=== PATIENT | female | born 1970 | race Caucasian/White ===

== ENCOUNTER 2017-06-18 20:28 | Observation (INO) ==
[2017-06-18 20:55] LABS: Basophils # 0.1 K/mcL (0.0-0.2); Basophils % 0.6 %; Eosinophils # 0.3 K/mcL (0.0-0.6); Eosinophils % 2.2 %; Hematocrit 48.1 % (35.3-44.9); Hemoglobin 15.3 g/dL (11.5-15.4); Immature Granulocytes % 0.5 % (0-4); Lymphocytes # 3.8 K/mcL (0.6-4.6); Lymphocytes % 30.1 %; Mean Corpuscular HGB Conc 31.8 g/dL (31.6-35.5); Mean Corpuscular Hemoglobin 26.2 pg (28.0-33.3); Mean Corpuscular Volume 82.4 fL (83.0-100.0); Mean Platelet Volume 9.2 fL (9.4-12.4); Monocytes # 0.8 K/mcL (0.0-1.3); Monocytes % 6.1 %; Neutrophils # 7.6 K/mcL (1.6-8.9); Platelet Count 291 K/mcL (140-400); Red Blood Count 5.84 M/mcL (3.82-4.97); Segmented Neutrophils % 60.5 %
[2017-06-18 21:05] LABS: Prothrombin Time 10.5 Seconds (9.4-12.1)
[2017-06-18] MEDS ORDERED: Aspirin 81 MG TAB.CHEW PO STA (21:07)
[2017-06-18 21:08] LABS: Activated Partial Thrombo Time 25.2 Seconds (26.0-36.0)
[2017-06-18 21:09] LABS: BUN/Creatinine Ratio 18 (6-26); Blood Urea Nitrogen 15 mg/dL (7-20); Calcium 9.9 mg/dL (8.6-10.8); Carbon Dioxide 23 mEq/L (19-29); Chloride 105 mEq/L (98-109); Glucose 138 mg/dL (70-99); Osmolality,Calculated 291 (280-300); Sodium 139 mEq/L (136-145); eGFR For African Americans > 60 (> 60); eGFR For Non-African Americans > 60 (> 60)
--- NOTE | 2017-06-18 21:10 | Emergency Department Note ---
Disposition Clinical Impression: Elevated blood pressure reading Chest pain Qualifiers: Chest pain type: unspecified Qualified Code(s): R07.9 - Chest pain, unspecified Disposition: Admitted As Inpatient Condition: Good Referrals: NONE,PCP [Non-Partnered Physician] - Forms: ED Satisfaction Letter Time of Disposition: 22:20 General Adult HPI - General Chief complaint: ED Shortness of Breath/Dyspnea Stated complaint: CP/SOB Time Seen by Provider: 06/18/17 20:41 Source: patient Mode of arrival: ambulatory Limitations: no limitations Nursing Notes Reviewed: Yes Vital Signs Reviewed: Yes - History of Present Illness HPI Narrative: Patient is a 47-year-old female with a past medical history of hypertension who presents to the emergency department with the complaint of chest pain or shortness of breath that started 10 days ago. Symptoms have been gradual and worsening. She describes the chest pain as substernal and aching, 7/10 pain at this time, also has pain in her back and below each side of her rib cage. She denies any fevers, chills, vomiting. She has had episodes of associated diaphoresis. She states she had nausea and vomiting 3 days ago however she was also having one of her typical migraines at that time which she usually has nausea and vomiting with those. At night she uses nasal BiPAP and there is been a couple nights this week which she states she has felt short of breath from laying flat and she has to sit up to catch her breath. She states her lower extremities are more swollen than usual. She has not had any cardiac workup done. She recently quit smoking 12 days ago. She states she has not had a cough until today and she is not bringing up any mucus she states it just feels like a scratch in her throat. Denies any control use. No recent travels or surgeries in the last 3 weeks. Pain Scale: 7 - Related Data Previous Rx's Medication Instructions Recorded Oxycodone HCl/Acetaminophen 1 each PO Q4-6H PRN #10 tablet 02/11/16 [Percocet 5-325 mg Tablet] traMADol [Ultram] 50 mg PO Q6HR PRN #12 tablet 07/14/16 Allergies Allergy/AdvReac Type Severity Reaction Status Date / Time No Known Allergies Allergy Verified 06/18/17 20:34 All systems ED: reviewed and negative except as stated. Constitutional: Denies: fever, chills Cardiovascular: Reports: chest pain, orthopnea. Denies: palpitations, dyspnea on exertion, syncope Respiratory: Reports: cough, dyspnea. 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 She is speaking in full sentences. - General Limitations: no limitations General appearance: alert, in no apparent distress - Head Head exam: atraumatic, normocephalic, normal inspection - Eye Eye exam: Present: normal appearance, PERRL, EOMI - ENT ENT exam: normal exam, normal oropharynx, mucous membranes moist - Neck Neck exam: Present: normal inspection, full ROM, trachea midline - Chest Chest inspection: Present: normal inspection, symmetric chest wall rise. Absent : tenderness - Respiratory Respiratory exam: Present: normal lung sounds bilaterally. Absent: respiratory distress - Cardiovascular Cardiovascular exam: Present: regular rate, normal rhythm, normal heart sounds - Abdominal Exam Abdominal exam: Present: soft, Non-Tender, normal bowel sounds - Extremities Exam Extremities exam: Present: full ROM, pedal edema (1+ pitting edema). Absent: tenderness - Expanded Lower Extremity Exam Neurovascular/Tendon exam: Present: normal capillary refill. Absent: pulse deficit Gait: observed and normal - Back Exam Back exam: Present: normal inspection, full ROM. Absent: tenderness - Neurological Exam Neurological exam: Present: alert, oriented X3 - Psychiatric Psychiatric exam: Present: normal affect, normal mood - Skin Skin exam: Present: warm, dry, intact, normal color Course Course Narrative: Patient is a 47-year-old female presenting with chest pain has been going on for 10 days with associated shortness of breath. Plan for her in the ER is to order labs for cardiac workup including troponin, chest x-ray, EKG. Also give her aspirin. Also trial her with nitroglycerin, her blood pressure is 190s/ 110s. I have also asked the tech to try a different blood pressure cuff. - Reevaluation(s) Reevaluation #1: Patient took one dose of nitro SL and it did not improve her pain. She states it also gave her a headache. Her blood pressure is now 130/90. Time: 22:10 Reevaluation #2: The patient's blood pressure has improved from 130/90's. I discussed the patient case with Dr. Hood. Discussed plan to admit the patient for ACS rule out. He has requested that I order a d-dimer that he will follow up with once the patient is admitted. Time: 23:29 Vital Signs Temperature 98.5 F 06/18/17 20:28 Pulse Rate 95 06/18/17 20:28 Respiratory Rate 20 06/18/17 20:28 Blood Pressure 207/114 06/18/17 20:28 O2 Sat by Pulse Oximetry 96 06/18/17 20:28 Temperature 98.5 F 06/18/17 20:28 Pulse Rate 90 06/18/17 22:07 Respiratory Rate 16 06/18/17 22:07 Blood Pressure 130/87 06/18/17 22:07 O2 Sat by Pulse Oximetry 97 06/18/17 22:07 Oxygen Delivery Oxygen Delivery Room Air Medical Decision Making - Medical Records Medical records reviewed: Yes I reviewed the patient's medical records. - Lab Data Lab results reviewed: Yes I reviewed the patient's lab results. Result diagrams: 06/18/17 20:47 06/18/17 20:47 Lab Results 06/18/17 06/18/17 06/18/17 Range/Units 20:47 20:47 20:47 WBC 12.6 H (4.3-11.1) K/mcL RBC 5.84 H (3.82-4.97) M/mcL Hgb 15.3 (11.5-15.4) g/dL Hct 48.1 H (35.3-44.9) % MCV 82.4 L (83.0-100.0) fL MCH 26.2 L (28.0-33.3) pg MCHC 31.8 (31.6-35.5) g/dL RDW 14.0 (11.5-14.5) % Plt Count 291 (140-400) K/mcL MPV 9.2 L (9.4-12.4) fL Immature Gran % 0.5 (0-4) % Seg Neutrophils % 60.5 % Lymphocytes % 30.1 % Monocytes % 6.1 % Eosinophils % 2.2 % Basophils % 0.6 % Neutrophils # 7.6 (1.6-8.9) K/mcL Lymphocytes # 3.8 (0.6-4.6) K/mcL Monocytes # 0.8 (0.0-1.3) K/mcL Eosinophils # 0.3 (0.0-0.6) K/mcL Basophils # 0.1 (0.0-0.2) K/mcL PT 10.5 (9.4-12.1) Seconds INR 1.0 APTT 25.2 L (26.0-36.0) Seconds Sodium 139 (136-145) mEq/L Potassium 4.3 (3.5-4.5) mEq/L Chloride 105 (98-109) mEq/L Carbon Dioxide 23 (19-29) mEq/L BUN 15 (7-20) mg/dL Creatinine 0.84 (0.57-1.11) mg/dL Est GFR ( Amer) > 60 (> 60) Est GFR (Non-Af Amer) > 60 (> 60) BUN/Creatinine Ratio 18 (6-26) Glucose 138 H (70-99) mg/dL Calculated Osmolality 291 (280-300) Calcium 9.9 (8.6-10.8) mg/dL Troponin I (0-0.03) ng/mL B-Natriuretic Peptide (0-100) pg/mL 06/18/17 06/18/17 Range/Units 20:47 20:47 WBC (4.3-11.1) K/mcL RBC (3.82-4.97) M/mcL Hgb (11.5-15.4) g/dL Hct (35.3-44.9) % MCV (83.0-100.0) fL MCH (28.0-33.3) pg MCHC (31.6-35.5) g/dL RDW (11.5-14.5) % Plt Count (140-400) K/mcL MPV (9.4-12.4) fL Immature Gran % (0-4) % Seg Neutrophils % % Lymphocytes % % Monocytes % % Eosinophils % % Basophils % % Neutrophils # (1.6-8.9) K/mcL Lymphocytes # (0.6-4.6) K/mcL Monocytes # (0.0-1.3) K/mcL Eosinophils # (0.0-0.6) K/mcL Basophils # (0.0-0.2) K/mcL PT (9.4-12.1) Seconds INR APTT (26.0-36.0) Seconds Sodium (136-145) mEq/L Potassium (3.5-4.5) mEq/L Chloride (98-109) mEq/L Carbon Dioxide (19-29) mEq/L BUN (7-20) mg/dL Creatinine (0.57-1.11) mg/dL Est GFR ( Amer) (> 60) Est GFR (Non-Af Amer) (> 60) BUN/Creatinine Ratio (6-26) Glucose (70-99) mg/dL Calculated Osmolality (280-300) Calcium (8.6-10.8) mg/dL Troponin I 0.01 (0-0.03) ng/mL B-Natriuretic Peptide < 10 (0-100) pg/mL - Radiology Data Radiology results reviewed: Yes I reviewed the patient's radiology results. Chest X-Ray 06/18/17 20:35 IMPRESSION: No acute findings D/ / Lawanda Garcia MD / Lawanda Garcia MD Interpreting Provider: Lawanda Garcia MD - EKG Data EKG #1 EKG attestation: Yes I reviewed and interpreted this EKG. EKG results narrative: Patient's EKG was interpreted by me and was done at 20:37. The sinus rhythm at a rate of 89 bpm. Normal access. WI is 168, QRS is 96, QT is 354 and these are within normal limits. No signs of ST elevation or depression. The patient does have Q waves in lead 3 these are unchanged from her prior EKG that was done on 06/03/2012. Attestation Statement - Attestation Attestation: I personally interviewed and examined this patient and my medical decision- making was reviewed with the Resident Physician, Dr. Escobar. I agree with the documented findings, disposition and treatment plan as described except to the extent set forth below. Patient is a 47-year-old white female with history of hypertension who presents to the emergency department today with a 10 day history of intermittent gradually worsening substernal left-sided chest pain. Patient states this most recent episode started about 3 hours ago has been constant nonradiating, and about a 7 out of 10 in severity. This is associated with some shortness of breath. Patient was noted to have some nonproductive occasional coughing at bedside she states that she started this about 24 hours ago and it is more of a scratchy or tingling sensation in the back of her throat that triggers the cough. Patient states she has been short of breath with this and it seemed the symptoms seem to be worse with exertion or walking. Patient denies any back pain or flank pain, no abdominal pain, no fevers or chills, no diaphoresis. Patient denies any prior heart diagnosis her condition and no prior cardiac testing. Patient's blood pressure was significantly elevated on arrival and she states she is compliant with her medications. Patient denies any headache or neurologic symptoms or visual changes on arrival. I agree with patient's physical exam findings as documented. Patient was placed on school lunch monitor and continuous pulse ox, saline well was established and patient was given aspirin and started a nitroglycerin trial. She had one nitroglycerin with some mild improvement in pain but developed a subsequent generalized diffuse headache and refused any further nitroglycerin. Patient had labs drawn and sent as well as probable chest x-ray obtained. Patient's EKG shows normal sinus rhythm at 89 bpm with poor R-wave progression across the anterior leads, no acute ST or T-wave changes were seen as compared to prior EKG from 02/02/2012 which showed no acute change. Patient's labs are unremarkable overall and chest x-rays within normal limits. Patient's blood pressure has improved significantly with no specific treatment addressing her blood pressure. Patient's heart score equals 4. Time we recommended patient to be admitted for further evaluation of chest pain. Patient agrees with this plan and we will discuss with the hospitalist for final disposition.
[2017-06-18 21:11] LABS: Potassium 4.3 mEq/L (3.5-4.5)
[2017-06-18] MEDS: Nitroglycerin 0.4 MG TAB.SUBL SL PRN ×2 (21:51→21:57)
[2017-06-19] MEDS ORDERED: Acetaminophen 325 MG TABLET PO PRN (02:29)
[2017-06-19] MEDS ORDERED: *HR* Morphine 2 MG/ML SYRINGE IVP PRN (02:29)
[2017-06-19] MEDS ORDERED: Naloxone 0.4 MG/ML INJ IVP PRN (02:29)
[2017-06-19 04:45] LABS: Basophils # 0.1 K/mcL (0.0-0.2); Basophils % 0.8 %; Eosinophils # 0.3 K/mcL (0.0-0.6); Eosinophils % 2.7 %; Hematocrit 44.5 % (35.3-44.9); Hemoglobin 14.4 g/dL (11.5-15.4); Immature Granulocytes % 0.3 % (0-4); Lymphocytes # 3.4 K/mcL (0.6-4.6); Lymphocytes % 33.9 %; Mean Corpuscular HGB Conc 32.4 g/dL (31.6-35.5); Mean Corpuscular Volume 83.3 fL (83.0-100.0); Mean Platelet Volume 9.6 fL (9.4-12.4); Monocytes # 0.7 K/mcL (0.0-1.3); Monocytes % 7.4 %; Neutrophils # 5.5 K/mcL (1.6-8.9); Platelet Count 263 K/mcL (140-400); Red Blood Count 5.34 M/mcL (3.82-4.97); Red Cell Distribution Width 14.1 % (11.5-14.5); Segmented Neutrophils % 54.9 %
[2017-06-19 05:05] LABS: BUN/Creatinine Ratio 19 (6-26); Blood Urea Nitrogen 16 mg/dL (7-20); Calcium 9.3 mg/dL (8.6-10.8); Carbon Dioxide 27 mEq/L (19-29); Chloride 105 mEq/L (98-109); Chol/HDL Ratio 4.2 (0-4.9); Cholesterol 189 mg/dL (< 200); Glucose 112 mg/dL (70-99); HDL Cholesterol 45 mg/dL (40-59); LDL Cholesterol,Calculated 110 mg/dL (0-99); Osmolality,Calculated 292 (280-300); Potassium 4.5 mEq/L (3.5-4.5); Sodium 140 mEq/L (136-145); Triglycerides 169 mg/dL (< 150); eGFR For African Americans > 60 (> 60); eGFR For Non-African Americans > 60 (> 60)
--- NOTE | 2017-06-19 05:10 | Internal Med History&Physical ---
Date of Encounter: 06/19/17 Time of Encounter: 05:08 Assessment and Plan (1) Essential hypertension Current visit: Yes Status: Acute She does not take home medications for hypertension. Will advise low sodium diet on discharge and start HCTZ. (2) Morbid obesity Current visit: Yes Status: Acute We will advise outpatient weight loss regimen. (3) DVT prophylaxis Current visit: Yes Status: Acute Subcutaneous Lovenox. (4) Chest pain Current visit: Yes Status: Acute Atypical chest pain as it did not resolve with nitroglycerin and it does not worsen with exertion. Given risk factors will admit patient to hospital, trend troponin. Monitor on telemetry. Obtain echocardiogram. Obtain stress test in the morning. D-dimer was negative which makes PE extremely unlikely. Qualifiers: Chest pain type: unspecified Qualified Code(s): R07.9 - Chest pain, unspecified Internal Medicine - H&P: HPI Chief complaint: Chest pain Admitted From: Emergency Dept Plans for Post Hospital Care: Home History of present illness: Ms. Lane is a 47 year old female with past medical history significant for hypertension who presented to the hospital for evaluation of chest pain and shortness shortness of breath. She describes bilateral chest pain and tenderness worse with breathing which is mild to moderate and she describes as an her lungs are hurting particularly in the lower lobes. She also reports associated shortness of breath and dyspnea on exertion. Course has been progressively worsening over the last 10 days. She mentioned that she completely quit smoking 12 days ago. She denies cough sputum production and fever. A 10 point review of systems was negative Family history was negative for premature coronary artery disease in both parents Social history: Quit smoking 12 days ago, denies alcohol abuse and recreational drug use. Past Med Surg Social Fam HX - Past Medical History Medical history: hypertension Psychiatric history: no psych history - Past Surgical History Surgical History: , cholecystectomy - Social History Smoking Status: Former smoker Smokeless Tobacco Status: No Alcohol use: none Drug use: none - Family History Mother Name: Rosey Kan Age: 63 Hx Family Cardiac Disorders: No Hx Family Respiratory Disorders: No Hx Family Cancer: No Hx Family GI Disorders: Yes (Bowel resection, Blockage) Hx Family Genitourinary Disorders: No Hx Family Endocrine Disorder: Yes (DM) Hx Family Musculoskeletal Disorders: No Hx Family Neuromuscular Disorders: No Hx Family Neurologic Disorders: No Hx Family HEENT Disorders: Yes (Tonsilectomy) Hx Family Autoimmune Disorders: No Hx Family Reproductive Disorders: No Hx Family Psychosocial Disorders: No Hx Family Medical Disorders: No Internal Medicine - H&P: Meds 3 Allergy/AdvReac Type Severity Reaction Status Date / Time No Known Allergies Allergy Verified 06/18/17 20:34 All Systems PM: A 10-system review of systems was performed and is negative for pertinent findings except as documented above in the HPI. - Constitutional Vitals: Temp Pulse Resp BP Pulse Ox 97.4 F L 81 16 144/91 96 06/19/17 03:22 06/19/17 03:22 06/19/17 03:22 06/19/17 03:22 06/19/17 03:22 General appearance: Present: A&O X 3 - Eye Eye exam: Present: PERRL, conjuntiva pink, sclera anicteric Pupils: Present: PERRL - Respiratory Respiratory exam: Present: CTAB. Absent: accessory muscle use, rales, rhonchi, wheezes - Cardiovascular Cardiovascular exam: Present: RRR, +S1, +S2. Absent: diastolic murmur, gallop, rubs, systolic murmur - GI/Abdominal GI/Abdominal exam: Present: normal bowel sounds, soft, no peritoneal signs. Absent: distended, tenderness - Extremities Exam Extremities exam: Present: warm, radial pulses palpable and symmetrical. Absent : calf tenderness, cyanotic, pedal edema - Neurological Exam Neurological exam: Present: CN II-XII intact, oriented X3, no focal deficits. Absent: pronater drift, facial droop, speech deficit - Skin Skin exam: Present: dry, intact Internal Med - H&P Results - Labs CBC & Chem 7: 06/19/17 03:25 06/18/17 20:47 Labs: Short CBC 06/19/17 Range/Units 03:25 WBC 10.0 (4.3-11.1) K/mcL Hgb 14.4 (11.5-15.4) g/dL Hct 44.5 (35.3-44.9) % Plt Count 263 (140-400) K/mcL Neutrophils # 5.5 (1.6-8.9) K/mcL - EKG Data -: EKG Interpreted by Myself EKG shows normal: sinus rhythm
[2017-06-19] MEDS ORDERED: Regadenoson 0.4 MG/5 ML SYRINGE IVP ONE (06:06)
[2017-06-19] MEDS: *HR* HYDROcodone/Acet 5/325 mg TABLET PO PRN ×4 (09:47→23:43)
--- NOTE | 2017-06-19 12:49 | Event Note ---
Date of Encounter: 06/19/17 Time of Encounter: 12:45 This is 47 y/o F with morbid obesity, HTN and chronic low back pain admitted for atypical chest pain and lower back pain. Pt stated she does not have any more CP / SOB. She still has some chronic low back pain. Gen: A,A, O x3 Heart: S1 S2 + RRR, No murmurs a/p 1. Acute chest pain so far negative trop scheduled for stress test..will f/u on test results mean while cont current care ASA, Nitro SL, Morphine PRN
[2017-06-19] MEDS: Ipratropium/Albuterol Neb 3 ML IH PRN ×2 (15:54→22:19)
[2017-06-20] MEDS ORDERED: Aspirin Enteric Coated 81 MG Tablet PO SCH (09:00)
--- NOTE | 2017-06-20 09:23 | Nuclear Medicine Stress Report ---
Regadenoson Nuclear 2 day Name: Selena Lane Date of Study: 06/19/2017 Date: 1970 Ht: 69.0 in Medical Record#: [id number] Age: 47 Wt: 367.0 lb Gender: Female Order #: [id number] Location: [facility] Room: [facility] Supervising Provider: Juli Chavira CNP Reading Physician: Radhika Salinas DO Ordering Physician: Danielle Saldana CNP Primary Care Physician: Tor Reyna DO Stress Technologist: Anita Teran CLINICAL ENGINEER, CCT Radar Engineering Teacher: Sourav [place] Indications: Chest Pain Impression: Perfusion imaging was negative for ischemia or infarct. Pharmacologic ECG was negative for ischemia at the level of heart rate achieved. Gated EF = 67%. History: Hypertension Hypercholesteremia History of Smoking Stress Test Summary: Stress Test Type: Pharmacologic Regadenoson 0.4mg/5ml given IV Baseline Information: Initial Heart Rate: 88 Blood Pressure: 162/100 Stress Information: Test Terminated Due to (primary): As per protocol Maximum Blood Pressure: 146/94 Maximum Heart Rate: 118 Percent Maximum Heart Rate Achieved: 68 Double Product: 75133 METS Reached: 1 Symptoms: No chest symptoms Nuclear Summary: SPECT myocardial perfusion imaging using Tc99m Sestamibi given intravenously was performed at rest and following cardiac stress testing. The resting images were obtained following initial dose of 33.2 mCi. Following stress an additional dose of 35.3 mCi was given at peak exercise or 30 seconds post regadenoson infusion. Medication Given: Time Medication Dose Units Route Findings: Stress Note * Resting ECG demonstrated normal sinus rhythm with low voltage in the precordial leads and possible old septal WI. * Pharmacologic stress ECG is negative for ischemia at level of heart rate achieved. * Rare PVCs noted during stress. * Patient had no chest pain during stress. Hemodynamic responses * Normal hemodynamic responses to pharmacologic stress. Study Quality * Study quality is average. Gated EF % * Gated EF = 67%. Left Ventricle * The left ventricle is not dilated. TID * No evidence of transient ischemic dilatation. Lung Uptake * There is no evidence of increase lung uptake. NORMALS * Normal wall motion. * Normal segmental perfusion in stress. * Normal Segmental Perfusion in rest. Updated by Radhika Salinas on 06/20/2017 9:17:25 AM electronically signed on 06/20/2017 9:18:11 AM with status of Final
[2017-06-20 14:59] VITALS: BP 146/84
[2017-06-20] MEDS: *HR* HYDROcodone/Acet 5/325 mg TABLET PO PRN (15:02)
--- NOTE | 2017-06-20 15:36 | Discharge Summary ---
Date of Encounter: 06/20/17 Time of Encounter: 15:33 - Discharge Diagnosis (1) Chest pain Priority: Primary Status: Ruled-out Qualifiers: Chest pain type: unspecified Qualified Code(s): R07.9 - Chest pain, unspecified (2) Essential hypertension Priority: Primary Status: Acute (3) Morbid obesity Priority: Secondary Status: Acute (4) Tobacco dependence Priority: Secondary Status: Acute - Discharge Medications Prescriptions: Albuterol Sulfate [Proair Respiclick] 2 puff IH Q6HR PRN #1 [email or web address] PRN Reason: Shortness Of Breath Aspirin Enteric Coated [Aspirin EC] 81 mg PO DAILY #30 hydroCHLOROthiazide [Hydrochlorothiazide] 12.5 mg PO DAILY #30 tablet Metoprolol [Lopressor] 25 mg PO BID #60 tab Home Medications: Albuterol Sulfate [Proair Respiclick] 2 puff IH Q6HR PRN #1 [email or web address] 06/20/17 [Rx] Aspirin Enteric Coated [Aspirin EC] 81 mg PO DAILY #30 06/20/17 [Rx] Metoprolol [Lopressor] 25 mg PO BID #60 tab 06/20/17 [Rx] hydroCHLOROthiazide [Hydrochlorothiazide] 12.5 mg PO DAILY #30 tablet 06/20/17 [ Rx] Allergies/Adverse Reactions: 3 Allergy/AdvReac Type Severity Reaction Status Date / Time No Known Allergies Allergy Verified 06/18/17 20:34 Procedures/tests Complete & Pending: Procedures Performed prior 72 hours Category Date Time Status NM yolanda perf SPECT multi [NM] Routine Exams 06/19/17 02:31 Taken EV echocardiogram Routine Y 06/19/17 02:31 Completed SP pharm nuclear stress Routine Y 06/19/17 07:00 Completed Date of admission: 06/18/17 23:49 Primary care physician: Roselyn Aguilar - Patient Status Disposition: Home, Self-Care Condition: Good Overall status at discharge: patient is back to baseline - Discharge Instructions Instructions: Chest Pain (DC), Heart Healthy Diet (DC), Hypertensive Crisis (DC ) Follow Up With: Tor Reyna DO [Primary Care Provider] - 06/23/17 12:00 pm Additional Instructions: Need to f/u with PCP in one week Also need to go for BMP in one week since you started on water pill HCTZ for your blood pressure please f/u with PCP for test results. - Diet and Activity Activity: increase activity as tolerated Diet: low salt diet Hospital course: Ms. Lnae is a 47 year old female with past medical history significant for hypertension who presented to the hospital for evaluation of chest pain and shortness shortness of breath. She describes bilateral chest pain and tenderness worse with breathing which is mild to moderate and she describes as an her lungs are hurting particularly in the lower lobes. She also reports associated shortness of breath and dyspnea on exertion. Course has been progressively worsening over the last 10 days. She mentioned that she completely quit smoking 12 days ago. She denies cough sputum production and fever. Pt was admitted here and placed her on cardiac monitor technician and checked her serial troponins. All her troponin were negative. However since she is high risk for ACS with all the comorbidties, we did nuclear cardiac stress test, which came back negative. She also had uncontrolled BP, for she was not on any medication at home. Started her on Metoprolol 25mg BID and HCTZ 12.5 mg here. Her BP is stable now and 130-140's. Recommend to f/u with PCP in one week for further assessment. Also counseled to quit smoking and loose weight. - Time Spent with Patient Total time spent providing and/or coordinating discharge services: - Constitutional Vitals: Temp Pulse Resp BP Pulse Ox 98.2 F 92 18 146/84 92 06/20/17 11:33 06/20/17 14:58 06/20/17 14:58 06/20/17 14:58 06/20/17 11:33 General appearance: Present: A&O X 3, morbidly obese, pleasant, no acute distress, answers questions appropriately - Head Head exam: Present: atraumatic, normal inspection - Respiratory Respiratory exam: Present: decreased breath sounds, wheezes. Absent: respiratory distress, rhonchi, stridor - Cardiovascular Cardiovascular exam: Present: RRR, +S1, +S2. Absent: diastolic murmur, gallop, rubs, systolic murmur - GI/Abdominal GI/Abdominal exam: Present: soft. Absent: rebound, tenderness - Extremities Exam Extremities exam: Absent: calf tenderness, pedal edema, tenderness - Psychiatric Psychiatric exam: Present: normal affect, normal mood
--- NOTE | 2017-06-20 17:03 | Electrocardiograph Report ---
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
== END 2017-06-20 16:05 | disposition home or self-care (01) ==
LOC: 3BNU 20:28 → EMEROO 20:28 → SUATTDRO 23:49 → 3BNU 06-19 00:07
PROVIDERS: ADMIT Internal Medicine; ATTEND Family Medicine